=== PATIENT | male | born 1945 | race Caucasian/White ===

== ENCOUNTER → 2017-08-11 | Outpatient (CLI) | payer MEDICARE | LOC: M LRY 11:22 | DX: R06.02 Shortness of breath (principal) | CPT/HCPCS: 71046; 94640 ==

== ENCOUNTER → 2019-08-12 | Outpatient (CLI) | payer MEDICARE ==
--- NOTE | 2019-08-12 11:50 | REP ---
Clinical: Left lower extremity pain and swelling . Technique: Segundo scale and color Doppler evaluation using linear high frequency transducer. Findings: Ultrasound examination of the left lower extremity deep venous structures from the common femoral vein to the popliteal vein demonstrates nonocclusive thrombus extending from the mid/distal superficial femoral vein through the popliteal vein and tibioperoneal trunk. Impression: Nonocclusive thrombus. Electronically Signed by Rafael Yap MD 08/12/2019 11:42 A
== END ==
LOC: M RAD 10:52
PROVIDERS: ATTEND Family Medicine
DX: M79.605 Pain in left leg (principal); R22.42 Localized swelling, mass and lump, left lower limb

== ENCOUNTER → 2020-01-13 | Outpatient (CLI) | payer MEDICARE ==
--- NOTE | 2020-01-13 14:12 | REP ---
LEFT LOWER EXTREMITY DUPLEX DOPPLER VENOUS ULTRASOUND: Real-time compression and duplex Doppler interrogation of the left lower extremity deep venous system is performed and compared to a prior study of 08/12/2019. Distal femoral vein and popliteal vein are not fully compressible but demonstrate improved flow compared to the prior study. Common femoral vein is fully compressible with no thrombus. IMPRESSION: Mild residual nonocclusive thrombus distal femoral vein and popliteal vein, improved since the prior study. Electronically Signed by Marshal Segundo MD 01/14/2020 04:45 P
== END ==
LOC: M RAD 10:44
PROVIDERS: ATTEND Internal Medicine Hematology & Oncology
DX: M79.605 Pain in left leg (principal); R22.42 Localized swelling, mass and lump, left lower limb; I82.502 Chronic embolism and thrombosis of unspecified deep veins of left lower extremity; D68.62 Lupus anticoagulant syndrome

== ENCOUNTER → 2020-05-25 | Outpatient (CLI) | payer SELFPAY | LOC: M LABSMTC 10:29 | PROVIDERS: ATTEND Pediatrics | DX: Z11.59 Encounter for screening for other viral diseases (principal) ==

== ENCOUNTER → 2020-08-03 | Outpatient (CLI) | payer MEDICARE ==
--- NOTE | 2020-08-03 12:02 | REP ---
INDICATION: AAA, NICOTINE DEPENDENCE-LUNG CA SCREENING. COMPARISON: None. TECHNIQUE: Transabdominal retroperitoneal, abdominal aortic scanning. FINDINGS: Scanning through the retroperitoneum demonstrates that the abdominal aorta is normal in caliber at the level of the diaphragmatic hiatus measuring 2.4 x 2.3 cm in AP by transverse dimension respectively. The measurements of the aorta at the level of the renal artery origins is 1.9 x 2.0 cm, AP by transverse dimension respectively. The distal aorta is somewhat dilated measuring 3.2 x 3.5 cm. This is consistent with a small abdominal aortic aneurysm. The right and left common iliac arteries are obscured by abdominal gas. The aneurysmal segment of the aorta measures 4.0 cm in length.. IMPRESSION: 3.2 x 3.5 cm distal abdominal aortic aneurysm. Iliac arteries are obscured by abdominal gas.. <Electronically signed by Steve Yeboah > 08/03/20 [id number]
--- NOTE | 2020-08-03 12:07 | REP ---
INDICATION: AAA, NICOTINE DEPENDENCE-LUNG CA SCREENING. COMPARISON: Comparison chest x-ray August 11, 2017.. TECHNIQUE: Low-dose screening exam. 3 mm axial images are provided at lung only window settings. FINDINGS: Digital preliminary confectionery maker radiograph shows mild hyperinflation. There are scattered tiny punctate calcifications in the lung parenchyma consistent with granulomatous changes. No significant pulmonary nodule is appreciated. No mass lesion is observed. No infiltrate is seen. There is minimal linear fibrosis in the lingula at the left lung base. Some vascular calcification is observed. IMPRESSION: Lung RADS category 1 findings. Repeat screening study recommended in 1 year. <Electronically signed by Steve Yeboah > 08/03/20 [id number]
== END ==
LOC: M RAD 08:42
PROVIDERS: ATTEND Family Medicine
DX: Z12.2 Encounter for screening for malignant neoplasm of respiratory organs (principal); I71.4 Abdominal aortic aneurysm, without rupture; F17.218 Nicotine dependence, cigarettes, with other nicotine-induced disorders

== ENCOUNTER → 2021-09-16 | Outpatient (CLI) | payer MEDICARE | LOC: M RAD 13:07 | PROVIDERS: ATTEND Family Medicine | DX: Z12.2 Encounter for screening for malignant neoplasm of respiratory organs (principal); F17.210 Nicotine dependence, cigarettes, uncomplicated; R91.1 Solitary pulmonary nodule ==

== ENCOUNTER → 2023-11-13 | Outpatient (CLI) | payer MEDICARE | LOC: M RAD 07:39 | PROVIDERS: ATTEND Family Medicine | DX: Z12.2 Encounter for screening for malignant neoplasm of respiratory organs (principal); F17.210 Nicotine dependence, cigarettes, uncomplicated; I71.40 Abdominal aortic aneurysm, without rupture, unspecified; R91.8 Other nonspecific abnormal finding of lung field; I70.0 Atherosclerosis of aorta; I25.10 Atherosclerotic heart disease of native coronary artery without angina pectoris ==